=== PATIENT | female | born 1970 | race Caucasian/White ===

== ENCOUNTER 2022-03-30 12:47 | Emergency (ER) | payer OTHER, SELFPAY ==
[2022-03-30] VITALS (13 sets, daily range): BP systolic 102–132; BP diastolic 57–81; PULSE 63–80; RESP 14–25; TEMP 36.7; O2SAT 95–99; BMI 30.1
--- NOTE | 2022-03-30 12:57 | DI.RAD.S_ITS ---
PROCEDURE: XR CHEST 1V INDICATIONS: chest pain TECHNIQUE: One view of the chest was acquired. COMPARISON: None. FINDINGS: Surgical changes and devices: None. Lungs and pleura: Lungs are clear. No pleural effusions or pneumothorax. Mediastinum: Mediastinal contours appear normal. Heart size is normal. Bones and chest wall: No suspicious bony lesions. Overlying soft tissues appear unremarkable. IMPRESSION: No acute pulmonary process. Dictated by: Alexandra Dempsey M.D. on 03/30/2022 at 14:52 Approved by: Alexandra Dempsey M.D. on 03/30/2022 at 14:53
--- NOTE | 2022-03-30 12:58 | DI.US.S_ITS ---
PROCEDURE: US PERIPH VENOUS LOW EXTREM LT INDICATIONS: SWELLING. HISTORY OF DEEP VEIN THROMBOSIS TECHNIQUE: Real-time imaging, as well as color and pulse Doppler interrogation, were performed of the lower extremity deep veins from the inguinal ligament to the popliteal fossa. COMPARISON: None. FINDINGS: Deep venous thrombosis is identified at the distal thigh region and also behind the knee. At the distal thigh region the superficial femoral vein contains eccentric recanalized DVT, presumably scarred in position, and there is a short segment of occlusive thrombosis involving the popliteal vein that likely is acute. IMPRESSION: Chronic and acute DVT found at the distal superficial femoral vein and popliteal vein, respectively. The chronic DVT likely is asymptomatic. Dictated by: Eduar Boss M.D. on 03/30/2022 at 14:17 Approved by: Eduar Boss M.D. on 03/30/2022 at 14:19
[2022-03-30 13:32] LABS: Add Manual Diff / Slide Review NO; Basophils Absolute Auto 0 /uL (0-100); Basophils Percent Auto 0.6 % (0-2); Eosinophils Absolute Auto 600 /uL (0-450); Eosinophils Percent Auto 10.4 % (2-4); Hematocrit 40.6 % (36-46); Hemoglobin 13.5 g/dL (12.0-16.0); Lymphocytes Absolute Auto 1100 /uL (1100-4500); Lymphocytes Percent Auto 19.8 % (25-40); Mean Corpuscular HGB Conc 33.2 % (30-36); Mean Corpuscular Hemoglobin 30.5 PG (26-34); Mean Corpuscular Volume 91.8 fL (80-100); Monocytes Absolute Auto 400 /uL (0-900); Monocytes Percent Auto 7.9 % (3-14); Neutrophils Absolute Auto 3500 /uL (1500-7000); Neutrophils Percent Auto 61.3 % (50-75); Platelet Count 209 X10^3/uL (150-400); Red Blood Cell Count 4.43 X10^6/uL (4.0-5.2); Red Cell Distribution Width 13.6 % (11.6-14.8); White Blood Cell Count 5.7 X10^3/uL (4.5-11.0)
[2022-03-30 13:37] LABS: Alanine Aminotransferase 31 IU/L (<35); Albumin 4.7 g/dL (3.5-5.0); Albumin Globulin Ratio 1.5 (1.0-2.8); Alkaline Phosphatase 70 U/L (38-126); Aspartate Aminotransferase 38 IU/L (14-36); BUN Creatinine Ratio 16.9 (6-22); Bilirubin Total 1.2 mg/dL (0.2-1.3); Blood Urea Nitrogen 13 mg/dL (7-17); Calcium 9.4 mg/dL (8.4-10.2); Carbon Dioxide 24 mmol/L (22-32); Chloride 105 mmol/L (98-107); Creatine Kinase 157 U/L (30-135); Estimated Glomerular Filt Rate > 60 mL/min (>60); Globulin 3.2 g/dL (1.7-4.1); Glucose 91 mg/dL (70-100); Lipase 81 U/L (23-300); Potassium 4.4 mmol/L (3.4-5.1); Sodium 137 mmol/L (137-145); Total Protein 7.9 g/dL (6.3-8.2)
[2022-03-30 13:42] LABS: Prothrombin Time 11.8 SECONDS (10.1-12.7)
[2022-03-30 13:45] LABS: PTT Partial Thromboplastin Tim 24 SECONDS (26-36)
[2022-03-30 13:48] LABS: Troponin I < 0.012 ng/mL (0.01-0.034)
[2022-03-30 13:52] LABS: CKMB % Relative Index 0.4 % (1.5-5.0)
[2022-03-30 13:54] LABS: HEMOLYSIS 56 (0-50)
[2022-03-30 13:55] LABS: COVID19 -Nasal RAPID Negative (Negative)
--- NOTE | 2022-03-30 15:05 | ED.LOWEXIN ---
HPI - Extremity Injury (Lower) <Neida Crowder PA-C - Last Filed: 03/30/22 17:29> General Chief Complaint: Extremity Injury, Lower Stated Complaint: sent by Marianela ybarra. 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 She was doing fine until she could not afford her prescriptions. She is complaining that her asthma medications are exuberantly expensive. She stopped taking Xarelto on her own recognizance, but tried to be extra careful, wearing compression stockings, walking frequently. She noticed swelling in her left lower extremity approximately 4 days ago. She noticed today his swelling is somewhat less. However pain continuous 5 out 10. Patient does have overall controlled asthma, and ongoing shortness of breath. Since her swelling, her breathing did not change significantly. Related Data Previous Rx's Medication Instructions Recorded rivaroxaban 15 mg tablet (Xarelto) 15 mg PO BID #42 tabs 03/30/22 rivaroxaban 15 mg tablet (Xarelto) 15 mg PO DAILY #30 tabs 03/30/22 Allergies Allergy/AdvReac Type Severity Reaction Status Date / Time aspirin Allergy Severe Anaphylaxis Verified 03/30/22 12:57 morphine Allergy Severe Anaphylaxis Verified 03/30/22 12:57 Sulfa (Sulfonamide Allergy Intermediate Rash Verified 03/30/22 12:57 Antibiotics) Review of Systems <Neida Crowder PA-C - Last Filed: 03/30/22 17:29> Review of Systems Narrative: GENERAL: Denies chills, fatigue, malaise, fever, sweats. HEENT: Denies sinus pain, ear pain, sore throat, difficulty swallowing, dizziness. RESPIRATORY: Has chronic dyspnea, no cough, wheezing, hemoptysis, sputum. Has asthma controlled with inhalers. CARDIOVASCULAR: Denies chest pain, palpitations, orthopnea, edema, GASTROINTESTINAL: Denies nausea, vomiting, abdominal pain, diarrhea, constipation, melena. : Denies dysuria, frequency, incontinence, hematuria, urinary retention. MUSCULOSKELETAL: denies weakness, joint pain, or bony pain Extremities as per HPI. SKIN: Denies rash, skin lesions, or other NEUROLOGIC: Denies weakness, headache, numbness, change in speech, confusion, seizures, incoordination. PSYCHIATRIC: No concerning psychosocial issues. 12 point review of systems is negative except for those stated above Patient History <Neida Crowder PA-C - Last Filed: 03/30/22 17:29> Social History Smoking Status: Never smoker Smoking Status: Never smoker alcohol intake frequency: 0-2 drinks per day Substance Use Type: does not use Exam <FINA Tyler Last Filed: 03/30/22 17:29> Narrative Exam Narrative: GENERAL: 51 year old patient appears stated age. Well-developed patient, in no acute distress. HEAD: Atraumatic. Normocephalic. EYES: Pupils equal round and reactive. Extraocular motions intact. No scleral icterus. No injection or drainage. ENT: Nose without bleeding, purulent drainage. Throat without erythema, tonsillar hypertrophy or exudate. Airway patent. NECK: Trachea midline. Non tender CARDIOVASCULAR: Regular rate and rhythm without murmurs, gallops, or rubs. RESPIRATORY: Clear to auscultation. Breath sounds equal bilaterally. No wheezes, rales, or rhonchi. GASTROINTESTINAL: Abdomen soft, non-tender, nondistended. EXTREMITIES: Left nonpitting manuel edema and some calf tenderness no erythema BACK: Nontender without deformity or crepitance. No flank tenderness. NEURO: AOx3. No focal deficits SKIN: No rash or erythema of visible areas Initial Vital Signs Initial Vital Signs: Vital Signs Temperature 98.1 F 03/30/22 12:53 Pulse Rate 76 03/30/22 12:53 Respiratory Rate 14 03/30/22 12:53 Blood Pressure 132/81 03/30/22 12:53 Pulse Oximetry 99 03/30/22 12:53 Oxygen Delivery Method 03/30/22 12:[address] <[address] DO - Last Filed: 03/31/22 18:15> Initial Vital Signs Initial Vital Signs: Vital Signs Temperature 98.1 F 03/30/22 12:53 Pulse Rate 76 03/30/22 12:53 Respiratory Rate 14 03/30/22 12:53 Blood Pressure 132/81 03/30/22 12:53 Pulse Oximetry 99 03/30/22 12:53 Oxygen Delivery Method 03/30/22 12:53 Course <Neida Crowder PA-C - Last Filed: 03/30/22 17:29> Orders Ordered: Discontinued Medications Rivaroxaban (Rivaroxaban 10 Mg Tablet) 15 mg PO NOW ONE Stop: 03/30/22 17:29 Last Admin: 03/30/22 17:57 Dose: 15 mg Documented By: ROSARIO Vital Signs Vital signs: Vital Signs - 8 hr 03/30/22 12:53 03/30/22 13:36 03/30/22 13:36 Temperature 98.1 F Pulse Rate 76 75 Respiratory Rate 14 Blood Pressure 132/81 124/57 L Pulse Oximetry 99 99 Oxygen Delivery Method Room Air 03/30/22 14:00 03/30/22 14:01 03/30/22 14:01 Temperature Pulse Rate 68 80 Respiratory Rate 20 20 Blood Pressure 118/62 Pulse Oximetry 98 95 Oxygen Delivery Method 03/30/22 14:30 03/30/22 14:30 03/30/22 15:00 Temperature Pulse Rate 70 70 Respiratory Rate Blood Pressure 112/60 Pulse Oximetry 99 97 Oxygen Delivery Method 03/30/22 15:01 03/30/22 15:01 03/30/22 15:30 Temperature Pulse Rate 63 Respiratory Rate Blood Pressure 119/64 114/68 Pulse Oximetry 99 Oxygen Delivery Method 03/30/22 15:30 03/30/22 16:00 03/30/22 16:00 Temperature Pulse Rate 79 75 Respiratory Rate 23 22 Blood Pressure 102/59 L Pulse Oximetry 98 99 Oxygen Delivery Method <Gifty Street DO - Last Filed: 03/31/22 18:15> Orders Ordered: Discontinued Medications Rivaroxaban (Rivaroxaban 10 Mg Tablet) 15 mg PO NOW ONE Stop: 03/30/22 17:29 Last Admin: 03/30/22 17:57 Dose: 15 mg Documented By: ROSARIO Vital Signs Vital signs: Vital Signs - 8 hr 03/30/22 12:53 03/30/22 13:36 03/30/22 13:36 Temperature 98.1 F Pulse Rate 76 75 Respiratory Rate 14 Blood Pressure 132/81 124/57 L Pulse Oximetry 99 99 Oxygen Delivery Method Room Air 03/30/22 14:00 03/30/22 14:01 03/30/22 14:01 Temperature Pulse Rate 68 80 Respiratory Rate 20 20 Blood Pressure 118/62 Pulse Oximetry 98 95 Oxygen Delivery Method 03/30/22 14:30 03/30/22 14:30 03/30/22 15:00 Temperature Pulse Rate 70 70 Respiratory Rate Blood Pressure 112/60 Pulse Oximetry 99 97 Oxygen Delivery Method 03/30/22 15:01 03/30/22 15:01 03/30/22 15:30 Temperature Pulse Rate 63 Respiratory Rate Blood Pressure 119/64 114/68 Pulse Oximetry 99 Oxygen Delivery Method 03/30/22 15:30 03/30/22 16:00 03/30/22 16:00 Temperature Pulse Rate 79 75 Respiratory Rate 23 22 Blood Pressure 102/59 L Pulse Oximetry 98 99 Oxygen Delivery Method MDM - Extremity Injury (Lower) <Neida Crowedr PA-C - Last Filed: 03/30/22 17:29> Lab Data Result diagrams: 03/30/22 13:21 03/30/22 13:05 Labs: Lab Results 03/30/22 03/30/22 03/30/22 Range/Units 13:05 13:05 13:21 WBC 5.7 (4.5-11.0) X10^3/uL RBC 4.43 (4.0-5.2) X10^6/uL Hgb 13.5 (12.0-16.0) g/dL Hct 40.6 (36-46) % MCV 91.8 (80-100) fL MCH 30.5 (26-34) PG MCHC 33.2 (30-36) % RDW 13.6 (11.6-14.8) % Plt Count 209 (150-400) X10^3/uL Neut % (Auto) 61.3 (50-75) % Lymph % (Auto) 19.8 L (25-40) % Dickenson % (Auto) 7.9 (3-14) % Eos % (Auto) 10.4 H (2-4) % Baso % (Auto) 0.6 (0-2) % Neut # (Auto) 3500 (0390-1252) /uL Lymph # (Auto) 1100 (7324-1697) /uL Dickenson # (Auto) 400 (0-900) /uL Eos # (Auto) 600 H (0-450) /uL Baso # (Auto) 0 (0-100) /uL PT 11.8 (10.1-12.7) SECONDS INR 1.0 (0.9-1.3) APTT 24 L (26-36) SECONDS Sodium 137 (137-145) mmol/L Potassium 4.4 (3.4-5.1) mmol/L Chloride 105 (98-107) mmol/L Carbon Dioxide 24 (22-32) mmol/L BUN 13 (7-17) mg/dL Creatinine 0.77 (0.52-1.04) mg/dL Estimated GFR > 60 (>60) mL/min BUN/Creatinine Ratio 16.9 (6-22) Glucose 91 (70-100) mg/dL Calcium 9.4 (8.4-10.2) mg/dL Magnesium 2.0 (1.6-2.3) mg/dL Total Bilirubin 1.2 (0.2-1.3) mg/dL AST 38 H (14-36) IU/L ALT 31 (<35) IU/L Alkaline Phosphatase 70 (38-126) U/L Total Creatine Kinase 157 H (30-135) U/L CK-MB (CK-2) 0.60 (<2.37) ng/mL CK-MB (CK-2) Rel Index 0.4 L (1.5-5.0) % Troponin I < 0.012 (0.01-0.034) ng/mL Total Protein 7.9 (6.3-8.2) g/dL Albumin 4.7 (3.5-5.0) g/dL Globulin 3.2 (1.7-4.1) g/dL Albumin/Globulin Ratio 1.5 (1.0-2.8) Lipase 81 (23-300) U/L SARS-CoV-2 (PCR) (Negative) 03/30/22 Range/Units 13:31 WBC (4.5-11.0) X10^3/uL RBC (4.0-5.2) X10^6/uL Hgb (12.0-16.0) g/dL Hct (36-46) % MCV (80-100) fL MCH (26-34) PG MCHC (30-36) % RDW (11.6-14.8) % Plt Count (150-400) X10^3/uL Neut % (Auto) (50-75) % Lymph % (Auto) (25-40) % Dickenson % (Auto) (3-14) % Eos % (Auto) (2-4) % Baso % (Auto) (0-2) % Neut # (Auto) (0431-8609) /uL Lymph # (Auto) (0173-3363) /uL Dickenson # (Auto) (0-900) /uL Eos # (Auto) (0-450) /uL Baso # (Auto) (0-100) /uL PT (10.1-12.7) SECONDS INR (0.9-1.3) APTT (26-36) SECONDS Sodium (137-145) mmol/L Potassium (3.4-5.1) mmol/L Chloride (98-107) mmol/L Carbon Dioxide (22-32) mmol/L BUN (7-17) mg/dL Creatinine (0.52-1.04) mg/dL Estimated GFR (>60) mL/min BUN/Creatinine Ratio (6-22) Glucose (70-100) mg/dL Calcium (8.4-10.2) mg/dL Magnesium (1.6-2.3) mg/dL Total Bilirubin (0.2-1.3) mg/dL AST (14-36) IU/L ALT (<35) IU/L Alkaline Phosphatase (38-126) U/L Total Creatine Kinase (30-135) U/L CK-MB (CK-2) (<2.37) ng/mL CK-MB (CK-2) Rel Index (1.5-5.0) % Troponin I (0.01-0.034) ng/mL Total Protein (6.3-8.2) g/dL Albumin (3.5-5.0) g/dL Globulin (1.7-4.1) g/dL Albumin/Globulin Ratio (1.0-2.8) Lipase (23-300) U/L SARS-CoV-2 (PCR) Negative (Negative) Imaging Data Doppler left lower extremity: My Impression: ? Radiologist's Impression: IMPRESSION:? Chronic and acute DVT found at the distal superficial femoral vein and popliteal vein, respectively.? The chronic DVT likely is asymptomatic. PE CT ? ?IMPRESSION:? Negative for pulmonary embolism. Chest x-ray IMPRESSION:? No acute pulmonary process. ? ? MDM Narrative Medical decision making narrative: discussed with patient diagnosis and treatment Patient developed acute DVT in setting of lacking anti coagulation, recent travel and FV leiden mutation, prior history of DVTs stressed live long anti coagulation Advised to address with her PCP switch to coumadin which is more affordable but required monitoring more so then xarelto Patient's symptoms improved over duration of stay Findings and discharge diagnosis discussed with patient followed by verbalization of understanding Return precautions discussed with patient whom verbalize understanding. <Gifty Street, DO - Last Filed: 03/31/22 18:15> Lab Data Labs: Lab Results 03/30/22 03/30/22 03/30/22 Range/Units 13:05 13:05 13:21 WBC 5.7 (4.5-11.0) X10^3/uL RBC 4.43 (4.0-5.2) X10^6/uL Hgb 13.5 (12.0-16.0) g/dL Hct 40.6 (36-46) % MCV 91.8 (80-100) fL MCH 30.5 (26-34) PG MCHC 33.2 (30-36) % RDW 13.6 (11.6-14.8) % Plt Count 209 (150-400) X10^3/uL Neut % (Auto) 61.3 (50-75) % Lymph % (Auto) 19.8 L (25-40) % Dickenson % (Auto) 7.9 (3-14) % Eos % (Auto) 10.4 H (2-4) % Baso % (Auto) 0.6 (0-2) % Neut # (Auto) 3500 (3277-4952) /uL Lymph # (Auto) 1100 (8489-0206) /uL Dickenson # (Auto) 400 (0-900) /uL Eos # (Auto) 600 H (0-450) /uL Baso # (Auto) 0 (0-100) /uL PT 11.8 (10.1-12.7) SECONDS INR 1.0 (0.9-1.3) APTT 24 L (26-36) SECONDS Sodium 137 (137-145) mmol/L Potassium 4.4 (3.4-5.1) mmol/L Chloride 105 (98-107) mmol/L Carbon Dioxide 24 (22-32) mmol/L BUN 13 (7-17) mg/dL Creatinine 0.77 (0.52-1.04) mg/dL Estimated GFR > 60 (>60) mL/min BUN/Creatinine Ratio 16.9 (6-22) Glucose 91 (70-100) mg/dL Calcium 9.4 (8.4-10.2) mg/dL Magnesium 2.0 (1.6-2.3) mg/dL Total Bilirubin 1.2 (0.2-1.3) mg/dL AST 38 H (14-36) IU/L ALT 31 (<35) IU/L Alkaline Phosphatase 70 (38-126) U/L Total Creatine Kinase 157 H (30-135) U/L CK-MB (CK-2) 0.60 (<2.37) ng/mL CK-MB (CK-2) Rel Index 0.4 L (1.5-5.0) % Troponin I < 0.012 (0.01-0.034) ng/mL Total Protein 7.9 (6.3-8.2) g/dL Albumin 4.7 (3.5-5.0) g/dL Globulin 3.2 (1.7-4.1) g/dL Albumin/Globulin Ratio 1.5 (1.0-2.8) Lipase 81 (23-300) U/L SARS-CoV-2 (PCR) (Negative) 03/30/22 Range/Units 13:31 WBC (4.5-11.0) X10^3/uL RBC (4.0-5.2) X10^6/uL Hgb (12.0-16.0) g/dL Hct (36-46) % MCV (80-100) fL MCH (26-34) PG MCHC (30-36) % RDW (11.6-14.8) % Plt Count (150-400) X10^3/uL Neut % (Auto) (50-75) % Lymph % (Auto) (25-40) % Dickenson % (Auto) (3-14) % Eos % (Auto) (2-4) % Baso % (Auto) (0-2) % Neut # (Auto) (2598-6150) /uL Lymph # (Auto) (5942-5912) /uL Dickenson # (Auto) (0-900) /uL Eos # (Auto) (0-450) /uL Baso # (Auto) (0-100) /uL PT (10.1-12.7) SECONDS INR (0.9-1.3) APTT (26-36) SECONDS Sodium (137-145) mmol/L Potassium (3.4-5.1) mmol/L Chloride (98-107) mmol/L Carbon Dioxide (22-32) mmol/L BUN (7-17) mg/dL Creatinine (0.52-1.04) mg/dL Estimated GFR (>60) mL/min BUN/Creatinine Ratio (6-22) Glucose (70-100) mg/dL Calcium (8.4-10.2) mg/dL Magnesium (1.6-2.3) mg/dL Total Bilirubin (0.2-1.3) mg/dL AST (14-36) IU/L ALT (<35) IU/L Alkaline Phosphatase (38-126) U/L Total Creatine Kinase (30-135) U/L CK-MB (CK-2) (<2.37) ng/mL CK-MB (CK-2) Rel Index (1.5-5.0) % Troponin I (0.01-0.034) ng/mL Total Protein (6.3-8.2) g/dL Albumin (3.5-5.0) g/dL Globulin (1.7-4.1) g/dL Albumin/Globulin Ratio (1.0-2.8) Lipase (23-300) U/L SARS-CoV-2 (PCR) Negative (Negative) Imaging Data CT scan - chest: Radiologist's Impression: [address] [place] [id number] Scan Report Signed Patient: Elo Hendrickson MR#: [id number] : 1970 Acct:[id number] Age/Sex: 51 / F Date of Service: 03/30/22 Loc: ED Accession Number: [id number] ?? Procedure: CT angio chest PE protocol Ordering Provider: Neida Crowder P.A-C PROCEDURE:? CT ANGIO CHEST PE PROTOCOL ? INDICATIONS:? off ACT acute DVT short of breath FVLeiden pos ? TECHNIQUE:? After the administration of intravenous contrast, 2 mm thick sections acquired from the pulmonary apices to the posterior costophrenic angles.? 3-dimensional maximum intensity projection (MIP) coronal and sagittal reformats were then acquired through the thorax.? For radiation dose reduction, the following was used:? automated exposure control, adjustment of mA and/or kV according to patient size.? ? COMPARISON:? [facility], , US PERIPH VENOUS LOW EXTREM LT, 03/30/2022, 13:50.? [facility], CR, XR CHEST 1V, 03/30/2022, 12:57. ? FINDINGS:? Image quality:? Excellent.? ? Pulmonary arteries:? Pulmonary arteries are normal in size, and demonstrate no intraluminal filling defects to suggest central pulmonary embolism.? ? Lungs and pleura:? Lungs are clear.? No pleural effusions or pneumothorax.? Central and peripheral airways are patent.? ? Mediastinum:? Heart size is normal, without pericardial effusion.? No mediastinal or hilar adenopathy.? Thoracic aorta is normal in caliber and enhancement.? Esophagus is normal in caliber, without hiatal hernia.? ? Bones and chest wall:? No suspicious bony lesions.? Ribs and thoracic spine appear intact throughout.? Thyroid gland demonstrates no significant abnormality.? No axillary or supraclavicular adenopathy.? ? Abdomen: Cholecystectomy clips are seen. ? Visualized upper abdominal solid organs appear normal in the early arterial phase of enhancement.? IMPRESSION:? Negative for pulmonary embolism. ? Clear lungs. ? Additional findings:? Cholecystectomy ? Dictated by: Doroteo Cannon M.D. on 03/30/2022 at 15:40 ? ? Chest x-ray: Radiologist's Impression: Signed Patient: Elo Hendrickson MR#: [id number] : 1970 Acct:[id number] Age/Sex: 51 / F Date of Service: 03/30/22 Loc: ED Accession Number: [id number] ?? Procedure: XR chest 1V Ordering Provider: Gifty Street D.O. PROCEDURE:? XR CHEST 1V ? INDICATIONS:? chest pain ? TECHNIQUE:? One view of the chest was acquired.? ? COMPARISON:? None. ? FINDINGS:? ? Surgical changes and devices:? None.? ? Lungs and pleura:? Lungs are clear.? No pleural effusions or pneumothorax.? ? Mediastinum:? Mediastinal contours appear normal.? Heart size is normal.? ? Bones and chest wall:? No suspicious bony lesions.? Overlying soft tissues appear unremarkable.? ? IMPRESSION:? No acute pulmonary process. ? ? Dictated by: Alexandra Dempsey M.D. on 03/30/2022 at 14:52 ? ? Approved by: Alexandra Dempsey M.D. on 03/30/2022 at 14:53 ? ECG Data Interpretation: [place]- Normal sinus rhythm rate 68 PA interval 154 QRS [address] changes no T-wave inversions no priors to compare Discharge Plan Departure Patient Disposition: Home Clinical Impression: Acute deep vein thrombosis (DVT) of left femoral vein, Acute deep vein thrombosis (DVT) of popliteal vein of left lower extremity Instructions: DI for Deep Vein Thrombosis Activity Restrictions/Additional Instructions: *You have been diagnosed with Acute DVT of left popleteal and femoral veins *What to do: *Please continue to take your regular medications as directed. New medication prescriptions sent to your pharmacy: Xarelto *Please follow up with your primary care provider in 2-3 days, call for an appointment. Let them know you were seen in the Emergency Department and that we ask that you be seen in follow up. We will electronically transmit a record of today's note if your PCP is in our system *If you do not have a primary care provider please contact the [facility] Resource line at [phone]. They will ask some questions about your medical history and help get you set up with a doctor in the community. *Return to Emergency Department if you should have any new, worsening or concerning symptoms, such as shortness of breath, leg swellign, worsening pain, persistent vomiting or other bothersome symptoms Prescriptions: New Xarelto 15 mg tablet 15 mg PO BID Qty: 42 0RF Xarelto 15 mg tablet 15 mg PO DAILY Qty: 30 0RF Rx Instructions: must administer with evening meal take after completing 21 days of Xarelto twice a day Referrals: Rachel,Cristy S, DUMP OPERATOR [Primary Care Provider] - Stand Alone Forms: Patient Portal/API <Gifty Street DO - Last Filed: 03/31/22 18:15> Cosign ED Attending Jaylaature Attestation: I was immediately available in the department for consultation. Documentation has been reviewed. I agree with assessment and plan.
--- NOTE | 2022-03-30 15:35 | DI.CT.S_ITS ---
PROCEDURE: CT ANGIO CHEST PE PROTOCOL INDICATIONS: off ACT acute DVT short of breath FVLeiden pos TECHNIQUE: After the administration of intravenous contrast, 2 mm thick sections acquired from the pulmonary apices to the posterior costophrenic angles. 3-dimensional maximum intensity projection (MIP) coronal and sagittal reformats were then acquired through the thorax. For radiation dose reduction, the following was used: automated exposure control, adjustment of mA and/or kV according to patient size. COMPARISON: [facility], , US PERIPH VENOUS LOW EXTREM LT, 03/30/2022, 13:50. [facility], CR, XR CHEST 1V, 03/30/2022, 12:57. FINDINGS: Image quality: Excellent. Pulmonary arteries: Pulmonary arteries are normal in size, and demonstrate no intraluminal filling defects to suggest central pulmonary embolism. Lungs and pleura: Lungs are clear. No pleural effusions or pneumothorax. Central and peripheral airways are patent. Mediastinum: Heart size is normal, without pericardial effusion. No mediastinal or hilar adenopathy. Thoracic aorta is normal in caliber and enhancement. Esophagus is normal in caliber, without hiatal hernia. Bones and chest wall: No suspicious bony lesions. Ribs and thoracic spine appear intact throughout. Thyroid gland demonstrates no significant abnormality. No axillary or supraclavicular adenopathy. Abdomen: Cholecystectomy clips are seen. Visualized upper abdominal solid organs appear normal in the early arterial phase of enhancement. IMPRESSION: Negative for pulmonary embolism. Clear lungs. Additional findings: Cholecystectomy Dictated by: Doroteo Cannon M.D. on 03/30/2022 at 15:40 Approved by: Doroteo Cannon M.D. on 03/30/2022 at 15:42
[2022-03-30] MEDS: RIVAROXABAN 10 MG TABLET 15 MG PO (17:57)
== END 2022-03-30 18:00 | disposition home or self-care (01) ==
PROVIDERS: Emergency Medicine; Emergency Provider Physician Assistant Medical; PCP Nurse Practitioner
DX: I82.412 Acute embolism and thrombosis of left femoral vein (principal); I82.432 Acute embolism and thrombosis of left popliteal vein; R07.9 Chest pain, unspecified; Z20.822 Contact with and (suspected) exposure to COVID-19; Z79.01 Long term (current) use of anticoagulants
CPT/HCPCS: 36415; 71045; 71275; 80053; 82550; 82553; 83690; 83735; 84484; 85025; 85610; 85730; 87635; 93005; 93010; 93971; 99284; 99285; C9803; Q9967

== ENCOUNTER → 2023-01-01 19:59 | Outpatient (CLI) | payer OTHER, SELFPAY | PROVIDERS: PCP Nurse Practitioner; Referring Provider Family Medicine; Visit Provider Family Medicine | DX: Z23 Encounter for immunization (principal) | CPT/HCPCS: 90471; 90686 ==

== ENCOUNTER 2023-07-08 01:08 | Emergency (ER) | payer OTHER, SELFPAY ==
--- NOTE | 2023-07-08 01:15 | DI.RAD.S_ITS ---
PROCEDURE: XR HAND LT MIN 3V INDICATIONS: L crush injury, pain under thumb TECHNIQUE: 3 views of the hand(s) acquired. COMPARISON: None. FINDINGS: Bones: No fractures or dislocations. Carpal bones are normally aligned. No suspicious bony lesions. Soft tissues: No suspicious soft tissue calcifications. IMPRESSION: No acute bony abnormality. Dictated by: Sergio Rene M.D. on 07/08/2023 at 1:39 Approved by: Sergio Rene M.D. on 07/08/2023 at 1:40
[2023-07-08 01:21] VITALS: BP 127/75; PULSE 72; RESP 18; TEMP 36.8; O2SAT 98; BMI 28.3
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
== END 2023-07-08 01:54 | disposition home or self-care (01) ==
PROVIDERS: Emergency Provider Emergency Medicine; PCP Nurse Practitioner
DX: S60.222A Contusion of left hand, initial encounter (principal); X58.XXXA Exposure to other specified factors, initial encounter; Z79.01 Long term (current) use of anticoagulants
CPT/HCPCS: 73130; 99281; 99283